=== PATIENT | male | born 1970 | race Caucasian/White ===

== ENCOUNTER 2022-05-06 11:11 | Emergency (ER) | payer SELFPAY ==
[~2022-05-06] VITALS: Ht 175.3 cm; Wt 73.9 kg
[2022-05-06] MEDS ORDERED: ONDANSETRON ODT8 MG PO (12:42)
== END 2022-05-06 13:20 | disposition home or self-care (01) ==
LOC: ED 11:11
DX: K52.9 Noninfective gastroenteritis and colitis, unspecified (principal)
CPT/HCPCS: 36415; 80053; 81003; 83735; 85025; 96374; 99284-25; J2405; J7030

== ENCOUNTER 2022-06-20 05:32 | Emergency (ER) | payer OTHER ==
[~2022-06-20] VITALS: Ht 175.3 cm; Wt 75.0 kg
[~2022-06-20 05:32] MED LIST: ONDANSETRON ODT8 MG PO
[2022-06-20] MEDS ORDERED: TRAZODONE HCL50 MG PO (05:45)
--- NOTE | 2022-06-20 17:59 | EKG ---
[facility] [address] [facility] [place] [address] Signed Normal sinus rhythm Inferior infarct , age undetermined Abnormal ECG No previous ECGs available Confirmed by Je Culver MD () on 06/20/2022 5:59:15 PM Electronically Signed By: JE CULVER MD 06/20/22 1759 PATIENT NAME: AISHA BOLES JUAN Electrocardiogram DATE OF : 70 PHYSICIAN: JE CULVER MD REPORT #: [id number] REPORT IS CONFIDENTIAL AND NOT TO BE RELEASED WITHOUT AUTHORIZATION
== END 2022-06-20 08:31 | disposition home or self-care (01) ==
LOC: ED 05:32
DX: R07.89 Other chest pain (principal); Z20.822 Contact with and (suspected) exposure to COVID-19; Z79.899 Other long term (current) drug therapy
CPT/HCPCS: 36415; 71045; 80053; 83735; 83880; 84484; 85025; 85379; 85610; 85730; 87502; 93005; 93010; 96374; 99285-25; J2270; U0003

== ENCOUNTER 2022-09-06 13:24 | Emergency (ER) | payer OTHER ==
[~2022-09-06] VITALS: Ht 175.3 cm; Wt 75.8 kg
[~2022-09-06 13:24] MED LIST changes: +TRAZODONE HCL50 MG PO
[2022-09-06] MEDS ORDERED: PROTONIX40 MG PO (19:18)
[2022-09-06] MEDS ORDERED: ONDANSETRON ODT4 MG PO (19:18)
[2022-09-06 19:30] VITALS: BP 119/90
== END 2022-09-06 19:30 | disposition home or self-care (01) ==
LOC: ED 13:24
DX: K29.00 Acute gastritis without bleeding (principal)
CPT/HCPCS: 36415; 80053; 81003; 83690; 83735; 85025; J2405

== ENCOUNTER 2023-01-04 15:53 | Emergency (ER) | payer OTHER ==
[~2023-01-04] VITALS: Ht 175.3 cm; Wt 76.6 kg
--- OUTSIDE RECORDS SUMMARY | ~2023-01-04 | XMS | Continuity of Care Document ---
Demographics + + + | Address | [address] | | | [place] [address] | + + + | Preferred Language | Unknown | + + + | Marital Status | | + + + | Rastafarian Affiliation | Unknown | + + + | Race | White | + + + | Ethnic Group | Not or | + + + Author + + + | Author | [facility] | + + + | Organization | [facility] | + + + | Address | [address] | | | [place] [address] | + + + | Phone | | + + + Care Team Providers + + + + | Care Celery Cutter Name | Role | Phone | + + + + Unavailable | Unavailable | + + + + Allergies No information. Encounters No information. Functional Status No information. Immunizations No information. Medications No information. Problems + + + + | date | description | facility | + + + + | 2022-12-06 18:01 | NICOTINE DEPENDENCE, | [facility] | | | UNSPECIFIED, UNCOMPLICATED | | + + + + | 2022-12-06 18:01 | NON-ST ELEVATION (NSTEMI) | [facility] | | | MYOCARDIAL INFARCTION | | + + + + | 2022-12-06 18:01 | OTHER CHEST PAIN | [facility] | + + + + Procedures No information. Results/Labs No information. Social History +--------+ + + | date | description | facility | +--------+ + + Vital Signs No information."
--- OUTSIDE RECORDS SUMMARY | ~2023-01-04 | XMS | Continuity of Care Document ---
Demographics + + + | Address | [address] | | | [place] [address] | + + + | Preferred Language | Unknown | + + + | Marital Status | | + + + | Yarsani Affiliation | Unknown | + + + | Race | White | + + + | Ethnic Group | Not or | + + + Author + + + | Author | [facility] | + + + | Organization | [facility] | + + + | Address | [address] | | | [place] [address] | + + + | Phone | | + + + Care Team Providers + + + + | Care Casing Splitter Name | Role | Phone | + [...]
[~2023-01-04 15:53] MED LIST changes: +ONDANSETRON ODT4 MG PO; +PROTONIX40 MG PO
--- OUTSIDE RECORDS SUMMARY | 2023-01-04 16:00 | XMS ---
PreManage Notification: AISHA BOLES Security Chlorinator Events No recent Security Events currently on file CRITERIA MET - [facility] - 2 Visits in 30 Days CARE PROVIDERS -Linda- Dentist: Electronics Test Engineer [facility] PHONE: [phone] FRENCH GUZMAN Current PHONE: Unknown Paige has no Care Guidelines for this patient. Leia VISIT COUNT (12 MO.) [address] [place] [address] TOTAL 5 NOTE: Visits indicate total known visits. ED/UCC VISIT TRACKING (12 MO.) 01/04/2023 15:53 [facility] [place] TYPE: Emergency COMPLAINT: - CHEST PAIN 12/06/2022 18:01 [facility] [place] TYPE: Emergency COMPLAINT: - CHEST PAIN DIAGNOSES: - Nicotine dependence, unspecified, uncomplicated - Non-ST elevation (NSTEMI) myocardial infarction - Other chest pain 09/06/2022 13:25 [facility] [place] TYPE: Emergency COMPLAINT: - VOMITING DIAGNOSES: - Acute gastritis without bleeding - Vomiting, unspecified 06/20/2022 05:32 [facility] [place] TYPE: Emergency COMPLAINT: - CHEST PAIN DIAGNOSES: - Chest pain, unspecified - Contact with and (suspected) exposure to COVID-19 - Other chest pain - Other residential (current) drug therapy 05/06/2022 11:13 [facility] [place] TYPE: Emergency COMPLAINT: - V/D DIAGNOSES: - Nausea with vomiting, unspecified - Noninfective gastroenteritis and colitis, unspecified INPATIENT VISIT TRACKING (12 MO.) 12/07/2022 17:41 [facility] TYPE: Internal Medicine DIAGNOSES: - Atherosclerotic heart disease of [place] coronary artery without angina pectoris - Encounter for screening, unspecified - Non-ST elevation (NSTEMI) myocardial infarction - Triple Vessel Disease [facility] DIAGNOSES: - Non-ST elevation (NSTEMI) myocardial infarction - NSTEMI [email or web address]
[2023-01-04] MEDS ORDERED: ASPIRIN81 MG PO (16:18)
[2023-01-04] MEDS ORDERED: ATORVASTATIN CA80 MG PO (16:18)
[2023-01-04] MEDS ORDERED: CLOPIDOGREL75 MG PO (16:19)
[2023-01-04] MEDS ORDERED: METOPROLOL TART25 MG PO (16:19)
[2023-01-04] MEDS ORDERED: HYDROCODON-ACE1 EA11 PO (17:04)
[2023-01-04 17:22] VITALS: BP 122/94
--- NOTE | 2023-01-04 19:42 | EKG ---
[facility] [address] [facility] [place] [address] Signed Normal sinus rhythm Inferior infarct (cited on or before 20-JUN-2022) Abnormal ECG When compared with ECG of 06-DEC-2022 17:59, No significant change was found Confirmed by AMERICO CEBALLOS MD ([id number]) on 01/04/2023 7:41:50 PM Electronically Signed By: AMERICO CEBALLOS 01/04/231941 PATIENT NAME: AISHA BOLES Electrocardiogram DATE OF : 70 PHYSICIAN: AMERICO CEBALLOS REPORT #: [id number] REPORT IS CONFIDENTIAL AND NOT TO BE RELEASED WITHOUT AUTHORIZATION
== END 2023-01-04 17:23 | disposition home or self-care (01) ==
LOC: ED 15:53
DX: R07.89 Other chest pain (principal); Z79.899 Other long term (current) drug therapy; Z79.82 Long term (current) use of aspirin
CPT/HCPCS: 80053; 83735; 84484; 85025; 93005; 93010; 99284-25; A9270